=== PATIENT | female | born 1995 | race Caucasian/White ===

== ENCOUNTER 2016-08-08 00:28 | Emergency (ER) | payer OTHER ==
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
[~2016-08-08 00:28] MED LIST: ALBUTEROL17 GM INH; ALLERGY PILL; BACTRIM DS TABL1 TA1 PO; FLAGYL PO; MOTRIN600 M1 PO; NO MEDICATIONS; PREDNISONE PO; PRENATAL1 TA1 PO; SILVADENE TOP; TESSALON200 MG PO; TYLENOL #3 PO; VOLTAREN75 MG PO; ZITHROMAX PO; ZOFRAN PO; ZOVIRAX400 MG PO
== END 2016-08-08 02:21 | disposition home or self-care (01) ==
LOC: SED 00:28
DX: S09.90XA Unspecified injury of head, initial encounter (principal); S60.221A Contusion of right hand, initial encounter; F17.200 Nicotine dependence, unspecified, uncomplicated; Y08.89XA Assault by other specified means, initial encounter; Y92.89 Other specified places as the place of occurrence of the external cause
CPT/HCPCS: 70450; 73130; 99284